=== PATIENT | female | born 1965 | race Caucasian/White ===

== ENCOUNTER 2018-05-12 12:07 | Day surgery (SDC) | payer OTHER ==
[~2018-05-12] VITALS: Ht 165.1 cm; Wt 68.0 kg
[~2018-05-12 12:07] MED LIST: CLARITIN 10 MG10 MG PO; SINGULAIR10 MG PO
[2018-05-12 12:34] LABS: HEMATOCRIT 37.8 % (36.0-48.0); HEMOGLOBIN 12.7 g/dL (12-16); MCHC 33.6 g/dL (31.0-37.0); MCV 89.4 fL (80.0-100.0); MEAN PLATELET VOLUME 10.3 fL (7.4-10.4); RBC 4.23 10x6/uL (4.00-5.40); RDW 12.7 % (11.5-14.5)
[2018-05-12 13:41] VITALS: BP 112/73; Ht 165.1 cm; Wt 68.0 kg
[2018-05-12] MEDS ORDERED: HYDROCODON-ACE1 EAC7 PO (16:58)
--- NOTE | 2018-05-12 18:05 | NUR ---
DC INSTRUCTIONS GIVEN TO PT/FAMILY. STATE UNDERSTANDIND. DC'D IV CATH FULLY INTACT.
--- NOTE | 2018-05-12 18:16 | NUR ---
PT LEFT UNIT VIA WC AT 1817
--- NOTE | 2018-05-13 16:52 | OP ---
PATIENT NAME: RADHA POSADA MEDICAL RECORD: [id number] :69 LOCATION:[facility] ADMISSION DATE: SURGEON: MARKOS SHAFER DO DATE OF OPERATION: 05/12/2018 PROCEDURE PERFORMED: Left endoscopic carpal tunnel release. PREOPERATIVE DIAGNOSIS: Severe left carpal tunnel syndrome. POSTOPERATIVE DIAGNOSIS: Severe left carpal tunnel syndrome. SURGEON: Markos Shafer DO INDICATIONS: Ms. Posada is a 52-year-old female that presented to my office last year, complaining of hand numbness, tingling, and her first 3 fingers going numb at night when she was driving, talking on the phone, she was tired of dealing with this pain, and came to my office. I gave her some injections, which did help for short term. She did get a nerve conduction study, which showed severe carpal tunnel in bilateral wrists. She wanted to do the left one first. She is aware of the risks and benefits of the procedure including infection, bleeding, damage to the median nerve, loss of use of the hand and need for further surgery, she signed the consent. DESCRIPTION OF THE PROCEDURE: The patient was taken to the operative suite, laid in the supine position, given 2 grams Ancef preoperatively and did not have a reaction, even though she had PENICILLIN ALLERGY. The left upper extremity was prepped and draped in sterile fashion. Timeout was performed. Everyone was in agreement correct side, site, patient, and procedure. The incision was then marked out proximal to the wrist crease and the left upper extremity was exsanguinated with an Esmarch and tourniquet was inflated to 250 mmHg, was up for 9 minutes. The incision then began over the marked horizontally over the palmaris longus tendon. Careful dissection was then made with Ragnells. Blunt dissection down to the carpal tunnel itself. The forearm fascia was released from proximal to distal at that time under loupe magnification and then, the carpal tunnel was entered with the dilators, dilated up the canal to get the sheath in. The sheath was then entered into the carpal tunnel. The camera then was entered in and viewing the transverse carpal ligament and no other body structures were in the view or in the sheath, the transcarpal ligament was then cleaned off with a probe and a rasp and then the blade was brought in and then divided and transected the transverse carpal ligament until fat herniated into the carpal tunnel. A pickup and scissors were then used after the camera and sheath were removed. Under loupe magnification released the remaining transcarpal ligament at the incision site and then released any remaining fibers of the transcarpal ligament. After that was performed, the tourniquet was let down and the site was injected with 10 mL of 0.5% Marcaine with epinephrine and the site was closed with 5-0 Monocryl in an inverted interrupted fashion and Steri-Strips placed on the wound, Adaptic, 4 x 4's, Kerlix, and Coban were lightly wrapped on the incision around the hand. The patient was awakened and taken to the recovery in stable condition. BLOOD LOSS: Minimal. COMPLICATIONS: None. OPERATIVE REPORT [id number] RADHA POSADA TRANSINT:[id number] Voice Confirmation ID: [id number] DOCUMENT ID: [id number] AMRKOS SHAFER DO at 1652 CC: MARKOS POSADA [id number] DICTATION DATE: 05/12/18 1704 SALON COORDINATOR: 05/12/182009 [facility] 05/12/18 [facility] [address] [place] [address]
== END 2018-05-12 18:18 | disposition home or self-care (01) ==
LOC: D.OPS 12:07 → D.PAN 14:30 → D.OPS 18:18 → D.PAN 19:45
PROVIDERS: Anesthesiology
DX: G56.02 Carpal tunnel syndrome, left upper limb (principal); Z01.812 Encounter for preprocedural laboratory examination

== ENCOUNTER 2018-05-26 12:08 | Day surgery (SDC) | payer OTHER ==
[~2018-05-26] VITALS: Ht 165.1 cm; Wt 68.0 kg
[~2018-05-26 12:08] MED LIST changes: +HYDROCODON-ACE1 EAC7 PO
[2018-05-26 12:39] LABS: HEMATOCRIT 36.7 % (36.0-48.0); HEMOGLOBIN 12.8 g/dL (12-16); MCH 31.1 pg (26.0-34.0); MCHC 34.9 g/dL (31.0-37.0); MCV 89.1 fL (80.0-100.0); MEAN PLATELET VOLUME 10.1 fL (7.4-10.4); RBC 4.12 10x6/uL (4.00-5.40); RDW 12.7 % (11.5-14.5); WBC 4.2 10x3/uL (4.8-10.8)
[2018-05-26 12:57] LABS: HCG URINE NEGATIVE (NEGATIVE)
[2018-05-26 13:29] VITALS: BP 131/76; Ht 165.1 cm; Wt 68.0 kg
[2018-05-26 13:47] LABS: HCG URINE NEGATIVE (NEGATIVE)
[2018-05-26] MEDS ORDERED: HYDROCODON-ACE1 EAC7 PO (14:52)
--- NOTE | 2018-05-26 15:12 | NUR ---
IV DISLODGED WHEN PT ARRIVED TO PACU. RESITED PIV TO LEFT WRIST BY TIMOTHY VILLAVICENCIO RN.
--- NOTE | 2018-05-27 09:42 | OP ---
PATIENT NAME: RADHA POSADA MEDICAL RECORD: [id number] :69 LOCATION:[facility] ADMISSION DATE: SURGEON: ZACK SHAFER DO DATE OF OPERATION: 05/26/2018 PROCEDURE PERFORMED: Right endoscopic carpal tunnel release. PREOPERATIVE DIAGNOSIS: Severe right carpal tunnel syndrome. POSTOPERATIVE DIAGNOSIS: Severe right carpal tunnel syndrome. INDICATIONS: Ms. Posada is a 53-year-old female who presented to my office with bilateral carpal tunnel syndrome. She had a nerve conduction study, which demonstrated severe carpal tunnel syndrome. Once the nerve conduction was done, she decided to get the left one first. I did the left one 2 weeks ago, and today, we did the right one. She is aware of the risks and benefits of the procedure including infection; bleeding; damage to nerves and vessels; continued tingling in the median nerve distribution; and due to compression of the nerve, may not get all the feeling back in the median nerve distribution. Being aware of those risks and the benefit of getting the pain to go away, she consented to the procedure. SURGEON: Zack Shafer DO DESCRIPTION OF PROCEDURE: The patient was taken to the operative suite, laid in the supine position, and given general anesthetic and 2 grams of Ancef preoperatively. The right upper extremity was prepped and draped in sterile fashion with tourniquet above the elbow under the drapes. Time-out was performed and everyone was in agreement with correct side, site, patient, and procedure. Incision was then began with the right upper extremity with an Esmarch; exsanguinated; and the tourniquet was inflated to 250 mmHg, was up for 8 minutes. The incision began at the proximal wrist crease, just over the palmaris longus tendon. The skin only was incised with a #15 blade and then blunt dissection was made with a Ragnell down to the carpal tunnel itself. The forearm fascia was released from distal to proximal with a pickup and scissors just anterior to the carpal tunnel or to the median nerve. The carpal tunnel was then entered with the dilators and then the SEG-WAY sheath was entered into the carpal tunnel. The camera was then entered in through the sheath and I had a very nice picture of the transverse carpal ligament. This was probed and rasped in order to clean and to ensure there was nothing else in the way or through the ligament. The blade was then brought in, raised up, and transected the transverse carpal ligament. Once the transverse carpal ligament was transected, the erythema was removed, and then large retractor end of the Supriya not with the sharp end, the retractor end of the Seen was entered in and the transverse carpal ligament was inspected for any fibers that may be still connected. Scissors was spread to open up any connecting fibers at that time. We got good release. Tourniquet was then let down to 8 minutes and 10 cc of 0.5% Marcaine without epinephrine was then injected around the site. Then, the incision was closed with 5-0 Monocryl in inverted interrupted fashion. Steri-Strips was placed on the wound. Adaptic, 4 x 4's, Kerlix, and Coban were lightly wrapped on the wrist and around the hand. The patient was awakened and taken to recovery in stable condition. BLOOD LOSS: Minimal. OPERATIVE REPORT [id number] RADHA POSADA COMPLICATIONS: None. TRANSINT:[id number] Voice Confirmation ID: [id number] DOCUMENT ID: [id number] ZACK SHAFER DO at 0942 CC: [id number] DICTATION DATE: 05/26/18 1500 SLAB DEPILER OPERATOR: 05/26/18 1743 [facility] 05/26/18 [facility] [address] [place] [address]
== END 2018-05-26 17:05 | disposition home or self-care (01) ==
LOC: D.OPS 12:08
PROVIDERS: Anesthesiology; Orthopaedic Surgery
DX: G56.01 Carpal tunnel syndrome, right upper limb (principal)

== ENCOUNTER 2018-10-06 08:30 | Outpatient (CLI) | payer OTHER ==
[2018-05-26 13:29] VITALS: BMI 25.0
== END 2018-10-06 09:30 | disposition home or self-care (01) ==
LOC: D.MAMMO 08:30
PROVIDERS: ATTEND Obstetrics & Gynecology
DX: Z12.31 Encounter for screening mammogram for malignant neoplasm of breast (principal)

== ENCOUNTER 2019-05-28 09:40 | Day surgery (SDC) | payer OTHER ==
[2019-05-26 09:04] LABS: BASOPHILS 0.9 % (0-2); EOSINOPHILS 5.4 % (0-7); HEMATOCRIT 40.4 % (36.0-48.0); HEMOGLOBIN 13.5 g/dL (12-16); IMMATURE GRANULOCYTES 0.2 % (0-5); LYMPHOCYTES 35.4 % (15-50); MCH 30.1 pg (26.0-34.0); MCHC 33.4 g/dL (31.0-37.0); MONOCYTES 7.7 % (2-11); NEUTROPHILS 50.4 % (40-80); PLATELET COUNT 249 10x3/uL (130-400); RBC 4.49 10x6/uL (4.00-5.40); RDW 12.7 % (11.5-14.5); WBC 4.7 10x3/uL (4.8-10.8)
[~2019-05-28] VITALS: Ht 165.1 cm; Wt 67.1 kg
[~2019-05-28 09:40] MED LIST changes: +METAMUCIL PACKE1 PKT PO; +MULTI-DAY VITAM1 TAB PO; +PREDNISONE1 MG
[2019-05-28 10:01] LABS: HCG URINE NEGATIVE (NEGATIVE)
[2019-05-28 10:05] VITALS: BP 124/70; Ht 165.1 cm; Wt 67.1 kg
--- NOTE | 2019-05-28 13:44 | NUR ---
1315 IV REMOVED AND PT UP TO BATHROOM TO URINATE. SOME BLOOD NOTED IN TOILET. PAUL PAD CHANGED
--- NOTE | 2019-05-31 06:54 | OP ---
PATIENT NAME: RADHA OLEARY MEDICAL RECORD: [id number] :69 LOCATION:D[facility] ADMISSION DATE: SURGEON: LESLIE MURPHY MD DATE OF OPERATION: 05/28/2019 PREOPERATIVE DIAGNOSIS: Postmenopausal bleeding. POSTOPERATIVE DIAGNOSES: 1. Postmenopausal bleeding. 2. Leiomyoma uteri. 3. Polypoid mass of the uterine wall. PROCEDURES: 1. Diagnostic hysteroscopy. 2. Dilation and curettage. SURGEON: Leslie Murphy MD CURTAIN INSPECTOR: Bryan Taylor. ANESTHESIA: General. FINDINGS: Minimal bladder activity noted in the uterine cavity. There is a fibroid on the right of midline on the posterior wall with less than one-third of the body of the fibroid protruding into the cavity. At the time of D&C, a small polypoid mass was removed from the anterior wall. SPECIMENS REMOVED: Endometrial curettings and polypoid mass. SPECIMEN DISPOSITION: All specimens to pathology. ESTIMATED BLOOD LOSS: Less than 50 cc. FLUIDS: 700 cc of lactated Ringer's. URINE OUTPUT: Quantity sufficient void prior to this procedure. COMPLICATIONS: None. DRAINS: None. INDICATIONS: The patient is a 54-year-old female with her second episode of postmenopausal bleeding. Endometrial biopsy performed last year with unremarkable tissue. Ultrasound showing a mass, likely representing a fibroid contained within the uterus. The patient is consented for dilation and curettage with operative hysteroscopy with D&C. DESCRIPTION OF PROCEDURE: After informed consent was assured, the patient was taken to the operating room where anesthetic is obtained. The patient is now positioned and prepped and draped in usual sterile fashion. A speculum was introduced in the vagina and the cervix grasped and serially dilated to accommodate a 4-mm hysteroscope. This is passed to the fundus with visualization of both left and right ostia and the anterior and posterior uterine cavity. A fibroid that is contained within the posterior wall is protruding less than one-third of its volume. After visualization of the OPERATIVE REPORT [id number] RADHA OLEARY cavity, the cervix has continued to be dilated to accommodate a #1 curette. Curettage was now performed in all 4 quadrants until good cry was obtained. When curettage in the anterior portion of the cavity, small polypoid masses were removed. Single-tooth tenaculum, which was used to steady the cervix during this procedure is now removed and some bleeding was noted, which was cauterized with silver nitrate. Sponge, lap, and needle counts correct times 2. The patient is now awakened and taken down from the stirrups and went to the recovery area in stable condition. TRANSINT:[id number] Voice Confirmation ID: [id number] DOCUMENT ID: [id number] LESLIE MURPHY MD at 0654 CC: [id number] DICTATION DATE: 05/28/19 1158 ELECTRICAL APPLIANCE PREPARER: 05/28/19 1315 [facility] 05/28/19 [id number] [place] [address]
== END 2019-05-28 13:35 | disposition home or self-care (01) ==
LOC: D.OPS 09:40 → D.PAN 12:00 → D.OPS 13:35
PROVIDERS: ATTEND Obstetrics & Gynecology
DX: N95.0 Postmenopausal bleeding (principal); D25.9 Leiomyoma of uterus, unspecified; N84.1 Polyp of cervix uteri